=== PATIENT | female | born 1955 | race Caucasian/White ===

== ENCOUNTER 2019-01-02 08:17 | Inpatient (IN) ==
--- NOTE | 2018-11-21 08:37 | PAT Medication Instructions ---
Medication Instructions Date of Service November 21, 2018 Home Medications aspirin [Aspir-81] 81 mg PO DAILY cholecalciferol (vitamin D3) [Vitamin D3] 2,000 unit PO DAILY famotidine 10 mg PO HS raloxifene [Evista] 60 mg PO QAM ASK your prescriber and surgeon aspirin [Aspir-81] 81 mg PO DAILY DO NOT take the morning of surgery cholecalciferol (vitamin D3) [Vitamin D3] 2,000 unit PO DAILY raloxifene [Evista] 60 mg PO QAM Take morning of surgery NOTHING TO EAT OR DRINK AFTER MIDNIGHT Take evening before surgery famotidine 10 mg PO HS Other Notes If you have any questions please call us at [phone] or [phone] or [phone] or [phone]
--- NOTE | 2018-11-21 09:48 | Anesthesiology Consultation ---
Date of Service November 21, 2018 Assessment & Plan (1) Encounter for pre-operative examination: - No previous anesthesia records available Chart Review Chart Review: Acceptable Risk for Surgery and Patient seen in Pre Admission Testing Consults Requested none Teaching & Discussion Pre-Anesthesia Teaching/Discussion Notes: Instructed NPO after midnight before surgery, except medications with 15 cc of water. Medication instructions provided according to the PAT guidelines. History Surgery Operation Date: 01/02/19 07:00 Proposed Procedures p Right Total Knee Replacement - Tyron Alamo MD Height/Weight Height: 5 ft 2 in Weight: 64.9 kg Allergies Allergy/AdvReac Type Severity Reaction Status Date / Time latex Allergy Unknown ITCHY, Verified 11/17/18 09:35 REDNESS codeine AdvReac Unknown N/V Verified 11/17/18 09:35 Medications Home Medications Medication Instructions Recorded Confirmed Last Taken aspirin [Aspir-81] 81 mg PO DAILY 11/17/18 11/17/18 Unknown cholecalciferol (vitamin D3) 2,000 unit PO DAILY 11/17/18 11/17/18 Unknown [Vitamin D3] famotidine 10 mg PO HS 11/17/18 11/17/18 11/16/18 raloxifene [Evista] 60 mg PO QAM 11/17/18 11/17/18 11/17/18 Past Medical History Medical History Acid reflux High cholesterol AT MOST RECENT CHECK/RE-CHECK IN 6 MON 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 Works with regional trainer on strength training. Recumbant bike and low impact. Able to walk up stairs, but slower than normal. Not able to do her normal cardio due to knee pain. Denies CP or SOB.) Past Family History Family History Sister History of breast cancer Father History of prostate cancer Brother History of prostate cancer Past Surgical History Surgical History H/O Mohs micrographic surgery for skin cancer History of arthroscopy of right knee History of colonoscopy History of hernia surgery RIGHT INGUINAL History of lumpectomy of left breast History of tonsillectomy and adenoidectomy Past Anesthesia History No Hx of Anesthesia Complications and No Family Hx of Anesthesia Complications History of PONV No Hx of PONV and No Hx of Motion Sickness Social History Smoking Status: Never smoker Do You Dip or Chew Tobacco: No Hx Alcohol Use: Yes Alcohol type: wine alcohol intake frequency: a few times a week Hx Substance Use: No substance use type: does not use Review of Systems Patient denies chest pain, shortness of breath, dyspnea on exertion, cough, wheezing, palpitations. +Joint Pain (Knee) +Acid Reflux (Controlled with current medications) Physical Exam Vital Signs BP: 101/68 P: 75 R: 14 T: 98.7 SPO2: 96% on RA ENMT Thyromental Distance: > or= 3.5 Finger Breadths (3.5) Mallampati Class: I Neck normal visual inspection and trachea midline; neck extension not limited Respiratory normal respiratory effort Auscultation: lungs clear to auscultation bilaterally Cardiovascular Rate/Rhythm: regular rate and regular rhythm Heart Sounds: no murmur Vessels: no carotid bruit Neurologic moves all extremities Psychiatric Orientation: alert and oriented x 3 Testing Laboratory Results 11/21/18 10:19 11/21/18 10:19 11/21/18 11/21/18 10:19 10:19 PT 10.1 INR 1.0 APTT 24.5 Blood Type A Positive Antibody Screen NEGATIVE Electrocardiogram Date: 11/21/18 Findings: + NSR @ (67) Chest X-Ray Date: 11/21/18 Findings: + NAD FINDINGS: The lungs are clear. Cardiac silhouette is normal in size. No pleural effusions. No pneumothorax. Moderate to large amount of well-formed stool within the colon. IMPRESSION: No acute process.
--- NOTE | 2018-11-21 10:42 | XRay Report ---
XR chest Pre-admission PA/Lat HISTORY: Preop. COMPARISON: None. FINDINGS: The lungs are clear. Cardiac silhouette is normal in size. No pleural effusions. No pneumot horax. Moderate to large amount of well-formed stool within the colon. IMPRESSION: No acute process. Electronically signed by: Reza Mejia M.D. 11/21/2018 10:41 AM
[2018-11-21 12:12] LABS: Basophils # (auto) 0.03 K/uL (0-0.2); Eosinophils # (auto) 0.08 K/uL (0-0.5); Eosinophils % (auto) 2.6 %; Hematocrit (blood only) 37.5 % (37-47); Hemoglobin 12.2 g/dL (12.0-16.0); Lymphocytes # (auto) 1.16 K/uL (1.2-3.4); Lymphocytes % (auto) 37.2 %; Mean Corpuscular Hgb Conc 32.5 g/dL (32-36); Mean Corpuscular Volume 93.3 fL (80-100); Mean Platelet Volume 9.8 fL (7.4-10.4); Monocytes # (auto) 0.45 K/uL (0.11-0.59); Monocytes % (auto) 14.4 %; Neutrophils % (auto) 44.8 %; Platelet Count 241 K/uL (130-400); RDW Standard Deviation 44.3 fL (36.4-46.3); Red Blood Count 4.02 M/uL (4.2-5.4); White Blood Count 3.12 K/uL (4.8-10.8)
[2018-11-21 12:20] LABS: Calcium 8.9 mg/dl (8.5-10.1); Creatinine Clr Calc Pharmacy 78.5 ml/min; Est GFR (African American) 109.3; Est GFR (Non-African American) 94.3; Potassium 4.3 mmol/L (3.5-5.1)
[2018-11-21 12:28] LABS: Partial Thromboplastin Ratio 0.9; Partial Thromboplastin Time 24.5 Seconds (21.0-31.0); Prothrombin Time 10.1 Seconds (9.0-12.0)
--- NOTE | 2018-12-27 10:36 | History and Physical Report ---
DATE OF ADMISSION: 01/02/2019 CHIEF COMPLAINT: Right knee pain. HISTORY OF PRESENT ILLNESS: The patient is a 63-year-old female from the [place], [place] who presents for surgical treatment of her right knee. The patient is a sister of a total knee replacement patient of mine who she helped to recovery in the past. This patient has a several-year history of right knee pain and discomfort. It has gotten significantly worse over the past 2 years. No known injury. She has been through extensive conservative treatment and local including medicines with injections, which really have not helped much at all lately. Her pain is global. The more she walks, the more it hurts. She has a walking tolerance of a couple blocks. It does swell as the day goes on. Does have history of a knee arthroscopy back in 1990, which did help for a while. She has nighttime discomfort. She would like to have her right knee fixed. PAST MEDICAL HISTORY: Significant for: 1. Loco's palsy of unclear etiology. 2. Chronic anemia. 3. Gastroesophageal reflux disease. 4. Breast cancer in remission. 5. Skin cancer. PAST SURGICAL HISTORY: Previous surgeries include: 1. Right knee arthroscopy in 1990. 2. T and A. 3. Hernia repair. 4. Lumpectomy. 5. Mohs surgery. ALLERGIES: CODEINE WHICH CAUSES NAUSEA AND VOMITING AND LATEX WHICH CAUSES SWELLING. CURRENT MEDICINES: Include: 1. Raloxifene 60 mg once a day. 2. Famotidine 20 mg. 3. Aspirin 81 mg a day. 4. Vitamin D. SOCIAL HISTORY: A 63-year-old female. She lives in [place]. She is . She has family in this area. Four drinks per week. Does not smoke. FAMILY HISTORY: Noncontributory. REVIEW OF HISTORY: Negative for diabetes, neurologic problems, vascular problems or bleeding disorders. No chest pain or shortness of breath. No evidence of DVT or PE. PHYSICAL EXAMINATION: GENERAL: Reveals a healthy, pleasant middle-aged female. Looks to be in pretty good health. HEENT: Benign. NECK: Supple. No lymphadenopathy. LUNGS: Clear to auscultation. HEART: Has a regular rate and rhythm. ABDOMEN: Soft, nontender, nondistended. EXTREMITIES: Grossly neurovascularly intact except as follows: Examination of the right knee reveals the patient walks with a slight bit of a limp. She has fairly neutral slight varus alignment to her knee. She is tender over the medial joint line. Small knee effusion. Range of motion is 5 degrees short of full extension to 120 degrees of flexion. There is no instability. No pain with hip motion. X-RAYS: X-ray of the right knee reviewed. Shows advanced medial compartment DJD. She has osteophytes off the medial tibial plateau. A little bit of tibial femoral subluxation. ASSESSMENT: A 63-year-old female with right knee pain and degenerative joint disease with a history of knee arthroscopy many years ago. She has failed conservative treatment and would like to have her right knee replaced. PLAN: We will take her to the operating room and do a right knee replacement. The risks and benefits of this procedure were explained to the patient including but not limited to DVT, PE, , infection, neurological injury, vascular injury, bleeding problem, pain, limited range of motion, stiffness, failure to relieve her symptoms, incomplete relief of symptoms, need for further surgery in future, fracture, leg length inequality, nerve palsy, need for revision surgery, need for blood transfusion, etc. The patient understands and desires to proceed. Informed consent was obtained. The patient is planning to be discharged to her sister's home who will assist in her care. She will plan on using [facility].
[~2019-01-02 08:17] MED LIST: ACETAMINOPHEN 500 MG TAB PO SCH; BUPIVACAINE 0.5 % 5 MG/1 ML PF 10ML VIAL ONE; BUPIVACAINE LIPOSOME/PF 266 MG, BUPIVACAINE/EPINEPHRINE 50 ML, SODIUM CHLORIDE 0.9% 30 ... INFIL SCH; CEFAZOLIN 2000MG 2,000 MG/15 ML SYR IV SCH; EPINEPHrine INJ 1 MG/ML AMP ONE; FAMOTIDINE 20 MG TAB PO SCH; GABAPENTIN 600 MG DOSE PO SCH; LR 500ML BOLUS, THEN 15ML/HR IV SCH; LR 60ML/HR IV SCH; METOCLOPRAMIDE HCL 10 MG TABLET PO SCH; ROPIVACAINE 0.5% 5 MG/ML 30 ML VIAL ONE; SCOPOLAMINE 1.5 MG TDSY TD SCH; TRANEXAMIC ACID 1,000 MG **IV Intra-op IV SCH
--- NOTE | 2019-01-02 08:35 | History & Physical Bridge Note ---
Date of Service January 02, 2019 History & Physical Bridge Note I have examined the patient, reviewed the History & Physical and in the interval since the performance of the History & Physical I have noted the following changes of clinical significance: no changes noted
[2019-01-02] MEDS ORDERED: fentaNYL citrate 100 MCG/2 ML VIAL ONE (08:37)
[2019-01-02] MEDS ORDERED: MIDAZOLAM HCL 1 MG/ML 2ML VIAL ONE (08:38)
[2019-01-02] MEDS ORDERED: SODIUM CHLORIDE 0.9% PF 50 ML VIAL ONE (08:40)
[2019-01-02] MEDS ORDERED: BACITRACIN INJ 50,000 UNIT VIAL ONE (08:41)
[2019-01-02] MEDS ORDERED: BUPIVACAINE LIPOSOME 1.3% 266 MG/20 ML VIAL ONE (08:41)
[2019-01-02] MEDS ORDERED: BUPIVACAINE/EPINEPHRINE 0.25% 1:200,000 30 ML VIAL ONE ×2 (08:43→09:24)
[2019-01-02] MEDS ORDERED: PROPOFOL IV EMULSION 10 MG/ML 20 ML VIAL IV ONE (11:28)
[2019-01-02] MEDS ORDERED: LIDOCAINE HCL 2% 2 ML VIAL/AMP(20MG/ML) INFIL ONE (11:28)
--- NOTE | 2019-01-02 12:13 | Post Operative Brief Note ---
Immediate Post Op Note v1 Date of Surgery January 02, 2019 Pre & Post Diagnosis Operation Date: 01/02/19 10:40 Pre-Op Diagnosis: Right knee degenerative joint disease with knee pain Post-Op Diagnosis: Right knee degenerative joint disease with knee pain Procedure Operation Date: 01/02/19 10:40 Actual Procedures p Right Total Knee Replacement(Right) - Tyron Alamo MD Surgeon Tyron Alamo MD Resource Management Specialist Analia, PAC Estimated Blood Loss 50 Findings Consistent with Post-Op Diagnosis Fluids 1500 cc Specimens Right Knee Drains Glez Catheter Anesthesia Type Spinal MAC Complications none Disposition Accompanied Patient To Recovery: No Disposition: Recovery Room
--- NOTE | 2019-01-02 12:30 | XRay Report ---
TWO VIEWS RIGHT KNEE CLINICAL HISTORY: Postoperative examination. FINDINGS: AP and crosstable lateral portable views of the right knee are obtained. A right knee arthr oplasty is in near anatomic alignment. There has been undersurface remodeling of the patella. No acut e fracture is seen. There are expected postoperative changes around the knee including skin clips, so ft tissue edema, and subcutaneous gas. IMPRESSION: Expected postoperative changes status post right knee arthroplasty. No acute fracture is seen. Electronically signed by: Terry Adler M.D. 01/02/2019 12:28 PM
[2019-01-02] MEDS ORDERED: ePHEDrine sulfate 50 MG/ML AMP IV PRN (12:41)
[2019-01-02] MEDS ORDERED: ATROPINE SULFATE 0.1 MG/ML 10ML SYR IV PRN (12:41)
--- NOTE | 2019-01-02 12:43 | Anesthesiology Progress Note ---
Date of Service January 02, 2019 Anesthesia Post Procedure Vital Signs Vital Signs: Temp Pulse Pulse Resp BP Pulse Ox 01/02/19 12:40 87 16 106/69 98 01/02/19 12:30 89 15 118/65 100 01/02/19 12:19 36.4 C L 89 16 96/81 L 98 01/02/19 08:45 36.8 C 72 18 117/59 L 98 Pain Intensity Right Knee: Pain Intensity: 0 Transfer of Care Handoff Completed per policy Notes Mental Status: alert / awake / arousable Patient Amnestic to Procedure: Yes Nausea / Vomiting: adequately controlled Pain: adequately controlled Airway Patency, RR, SpO2: stable & adequate BP & HR: stable & adequate Hydration State: stable & adequate Neuraxial Anesthesia: was administered and sensory block is resolving Anesthetic Complications: no major complications apparent
[2019-01-02] MEDS ORDERED: HYDROmorphone INJ 0.5 MG/0.5 ML SYR IV PRN (13:10)
[2019-01-02] MEDS ORDERED: BISACODYL 10 MG SUPP PR PRN (13:10)
[2019-01-02] MEDS ORDERED: MAGNESIUM HYDROXIDE SUSP 30 ML UDC PO PRN (13:10)
[2019-01-02] MEDS ORDERED: ALUMINUM/MAGNESIUM SUSP 30 ML UDC PO PRN (13:10)
[2019-01-02] MEDS ORDERED: NALOXONE HCL 0.4 MG/1 ML VIAL/CARP IV PRN (13:10)
[2019-01-02] MEDS ORDERED: METOCLOPRAMIDE HCL INJ 5 MG/ML 2 ML VIAL IV PRN (13:10)
[2019-01-02] MEDS: SODIUM CHLORIDE 0.9% 1000ML 1,000 ML IV SCH (14:38)
[2019-01-02] MEDS: KETOROLAC 30 MG/ML VIAL IV SCH ×2 (15:28→21:50)
[2019-01-02] MEDS: CHECK SCOPOLAMINE PATCH PLACEMENT SCH ×2 (15:29→23:55)
[2019-01-02] MEDS: ACETAMINOPHEN 500 MG TAB PO SCH ×2 (16:22→22:27)
[2019-01-02] MEDS: TRAMADOL HCL 50 MG TABLET PO PRN ×2 (16:22→23:58)
[2019-01-02] MEDS: FERROUS GLUCONATE 324 MG TAB PO SCH (17:39)
[2019-01-02] MEDS: ASCORBIC ACID 500 MG TAB PO SCH (17:40)
[2019-01-02] MEDS ORDERED: TRANEXAMIC ACID 1,000 MG in 0.9 % SODIUM CHLORIDE 100 ML IV SCH (18:15)
[2019-01-02] MEDS: CEFAZOLIN 1000MG 1,000 MG/7.5 ML SYR IV SCH (18:29)
--- NOTE | 2019-01-02 18:56 | Progress Note ---
DATE: 01/02/2019 SUBJECTIVE: This patient is a 63-year-old female who is postoperative from a right knee replacement. The patient is doing well. Pain is controlled. No chest pain or shortness of breath. Not feeling dizzy or lightheaded. OBJECTIVE: VITAL SIGNS: Temperature is 36.4. Vital signs stable. PHYSICAL EXAMINATION: GENERAL: Pleasant, middle-aged female. She is sitting up in her bedside chair eating her dinner. She looks comfortable. LUNGS: Clear to auscultation. HEART: Has regular rate and rhythm. ABDOMEN: Soft, nontender and nondistended. EXTREMITIES: Grossly neurovascularly intact except as follows. Examination of the right lower extremity reveals the dressing to be clean, dry and intact. Leg is well aligned. She can dorsiflex and plantarflex her foot appropriately. She is neurologically intact. X-RAYS: X-rays of the right knee from recovery room reviewed. It shows cemented posterior stabilized total knee arthroplasty. Components looked to be in good position. No signs of problems. ASSESSMENT: This patient is a 63-year-old female postoperative from a right knee replacement, doing well. Pain is controlled. She is neurologically intact. PLAN: 1. Deep venous thrombosis prophylaxis including thigh-high thromboembolic deterrent stockings, sequential compression devices and aspirin twice a day. 2. Physical therapy/occupational therapy. Weight bear as tolerated. Right total knee protocol. 3. Pain control, doing well with current pain regimen. 4. I.V. antibiotics x24 hours. 5. Disposition: She is planning to be discharged home with some home health once adequately recovered.
[2019-01-02] MEDS: ONDANSETRON INJ 2 MG/ML 2 ML VIAL IV PRN (18:58)
--- NOTE | 2019-01-02 20:07 | Operative Report ---
DATE OF OPERATION: 01/02/2019 SURGEON: Tyron Alamo MD SYSTEM SUPPORT ANALYST: CARLI Han PREOPERATIVE DIAGNOSIS: Right knee degenerative joint disease. POSTOPERATIVE DIAGNOSIS: Right knee degenerative joint disease. PROCEDURE PERFORMED: Right cemented posterior stabilized total knee arthroplasty. COMPLICATIONS: None. ESTIMATED BLOOD LOSS: 50 mL. FLUID REPLACEMENT: 1500 mL crystalloid fluid replacement. TOURNIQUET TIME: 50 minutes at 300 mmHg. ANESTHESIA: Spinal with adductor canal block. DRAINS: None. SPECIMENS: Right knee sent for pathology. OPERATIVE INDICATIONS: The patient is a 63-year-old female from [place] who has had a long history of right knee pain and discomfort that has gradually gotten worse over time. She does have a history of a knee arthroscopy back in 1990. She has been through extensive conservative treatment over the years, which become less successful. X-rays showed advanced medial compartment arthritis. The patient elected to proceed with operative treatment. OPERATIVE FINDINGS: Operative findings revealed advanced right knee DJD with grade 4 bone on bone disease in the medial compartment with pretty extensive eburnation. She has some spotty grade 4 changes laterally as well as in the patellofemoral joint. Moderate size joint effusion. OPERATIVE IMPLANTS: Operative implants consisted of: 1. Biomet Vanguard size 60 right posterior stabilized femoral component. 2. Biomet size 63 tibial tray. 3. A 10 mm posterior stabilized polyethylene insert. 4. A 28 x 8 all poly patella. OPERATIVE PROCEDURE: The patient was taken to the operating room, identified and placed on the operating room table in supine position. All contact areas were appropriately padded. I.V. antibiotics provided by anesthesia team. A spinal anesthetic and adductor canal block had been provided in the holding area. Glez catheter was placed in sterile fashion. Right thigh tourniquet was then placed and the right lower extremity was then prepped and draped in usual sterile fashion. The right leg was elevated and exsanguinated using Esmarch and tourniquet was placed at 300 mmHg. An anterior approach of the right knee was then performed through a longitudinal incision centered over the patella. Sharp dissection was carried through subcutaneous tissues down to the level of the extensor mechanism. A medial parapatellar arthrotomy incision was made. Some subperiosteal dissection was carried out medially. The fat pad resected from beneath the patellar tendon. The lateral patellofemoral ligament was released. The patella was everted and knee was flexed. The osteophytes were taken off the distal femur. The ACL and PCL were then released from the distal femur. The tibia subluxated anteriorly. External tibial alignment jig was then placed in the anterior face of the tibia and adjusted 14 mm medially. Proximal tibial cut was made to remove about 2 mm of bone from most deficient aspect of the medial tibial plateau. Some osteophytes were taken off medially and posteromedially. Tibia sized to a size 63. Attention was then drawn to the femur. The distal femur was entered with a sharp drill bit. Intramedullary canal was suctioned. A right 5-degree valgus cutting guide was placed. Distal femoral cutting block was pinned in place. Distal femoral cut was made to take an additional 3 mm of bone off the distal femur. Femur was then sized to a size 60. We did downsize this slightly. The AP cutting block was pinned parallel to the epicondylar axis, which was 3 degrees of external rotation. The anterior cut, anterior chamfer cut, posterior cut, posterior chamfer cuts were made. Box cut guide was placed and adjusted slightly lateral and the box cut was made. The knee was flexed. The remnants of the medial and lateral menisci were excised. The osteophytes were taken off the posterior aspect of the femur. Trial femoral component was placed. Tibial tray was pinned in maximum external rotation and drill and stem punch were used to create defect in proximal tibia for the tibial tray. The knee was then trialed and 10 mm insert fit most appropriately. Attention was then drawn to the patella. The patella was cleaned of all soft tissues. Patella thickness measured 20 mm in thickness and was cut down to 12. It was sized to a size 28 patella. Lug holes were drilled for 28 patella. Lateral osteophyte was removed. Patella button was placed. Knee was taken through range of motion. Patella tracked nicely with no thumbs test. Attention was then drawn toward placing the permanent components. All trial components were removed. Bone plug was placed in the distal femur to limit blood loss. A double batch of Palacos G cement was mixed. A Biomet Vanguard size 60 right posterior stabilized femoral component, size 63 tibial tray, a 10 mm posterior stabilized polyethylene insert, 28 x 8 all poly patella then cemented in place. Knee was brought out into full extension until cement hardened. A final cement check was then performed. Pericapsular tissues were injected with a total of 100 mL of combination of 20 mL of Exparel, 30 mL of normal saline, 50 mL of 0.25% Marcaine with epinephrine. The patient did receive 1 g of tranexamic acid. The tourniquet was then let down for final tourniquet time of 50 minutes. Hemostasis was assured with use of electrocautery. The extensor mechanism was then closed with combination of #1 PDS suture and #1 Vicryl suture in [id number] fashion. Extensor mechanism is intact. It was checked and intact. Subcutaneous tissue was then closed with #2 Dexon suture in a buried interrupted fashion. Skin was closed with skin rigo. Leg was then cleaned, dried and a sterile dressing of Xeroform, 4 x 4, sterile cast padding and Narendra bandage were applied. The patient was transferred to the recovery room in a stable condition. The patient tolerated the procedure well with no complication. All needle and sponge counts were correct at the end of the operation. I attest to the content of the Intraoperative Record and any orders documented therein. Any exception s are noted below.
[2019-01-02] MEDS: DOCUSATE SODIUM 100 MG CAP PO SCH (21:51)
[2019-01-02] MEDS: SENNA 8.6 MG TAB PO SCH (21:51)
[2019-01-02] MEDS: ASPIRIN 81 MG ECTAB PO SCH (21:51)
[2019-01-02] MEDS: FAMOTIDINE 20 MG TAB PO SCH (21:52)
[2019-01-03] MEDS: SODIUM CHLORIDE 0.9% 1000ML 1,000 ML IV SCH
[2019-01-03] MEDS: CEFAZOLIN 1000MG 1,000 MG/7.5 ML SYR IV SCH (02:25)
[2019-01-03] MEDS: KETOROLAC 30 MG/ML VIAL IV SCH ×4 (02:25→19:20)
[2019-01-03] MEDS: ACETAMINOPHEN 500 MG TAB PO SCH ×3 (05:41→22:00)
[2019-01-03 06:26] LABS: Hematocrit (blood only) 32.2 % (37-47); Hemoglobin 10.7 g/dL (12.0-16.0); Mean Corpuscular Hgb Conc 33.2 g/dL (32-36); Mean Corpuscular Volume 92.8 fL (80-100); Mean Platelet Volume 9.7 fL (7.4-10.4); Platelet Count 199 K/uL (130-400); RDW Coefficient of Variation 13.1 % (11.5-14.5); RDW Standard Deviation 44.3 fL (36.4-46.3); Red Blood Count 3.47 M/uL (4.2-5.4); White Blood Count 6.35 K/uL (4.8-10.8)
[2019-01-03 07:00] LABS: BUN Creatinine Ratio 18.8 (10-20); Calcium 7.7 mg/dl (8.5-10.1); Creatinine Clr Calc Pharmacy 75.5 ml/min; Est GFR (African American) 107.7; Est GFR (Non-African American) 92.9; Potassium 3.7 mmol/L (3.5-5.1)
[2019-01-03] MEDS: TRAMADOL HCL 50 MG TABLET PO PRN ×3 (07:25→19:52)
--- NOTE | 2019-01-03 08:11 | Progress Note ---
DATE: 01/03/2019 SUBJECTIVE: A 63-year-old female postop day 1 from right knee replacement. She is doing well. A little bit more pain overnight but still very manageable. No chest pain or shortness of breath. Not feeling dizzy or lightheaded. OBJECTIVE: VITAL SIGNS: Temperature 36.5. Vital signs stable. PHYSICAL EXAMINATION: GENERAL: Shows a pleasant, middle-aged female. She is sitting up in bed and reading a book this morning. EXTREMITIES: Examination of the right leg reveals the dressing to be clean, dry and intact. Leg is well aligned. She can dorsiflex and plantarflex her foot appropriately. She is neurologically intact. LABORATORY DATA: Hemoglobin 10.7. Hematocrit 32.2. Electrolytes are stable. ASSESSMENT: A 63-year-old female postop day 1 from right knee replacement, doing pretty well. Pain is controlled. She is neurologically intact. PLAN: 1. DVT prophylaxis including thigh-high TEDs, SCDs, and aspirin twice a day. 2. PT/OT. Weight bear as tolerated. Right total knee protocol. 3. Pain control, doing well with current pain regimen. 4. Disposition: She is planning to be discharged home with some home health and family.
[2019-01-03] MEDS ORDERED: CHOLECALCIFEROL 1,000 UNITS TAB PO SCH (09:00)
[2019-01-03] MEDS ORDERED: MULTIVITAMIN TAB PO SCH (09:00)
[2019-01-03] MEDS ORDERED: RALOXIFENE HCL 60 MG TAB PO SCH (09:00)
[2019-01-03] MEDS: ONDANSETRON INJ 2 MG/ML 2 ML VIAL IV PRN (09:11)
--- NOTE | 2019-01-03 10:34 | Anesthesiology Progress Note ---
Date of Service January 03, 2019 Anesthesia Post Procedure Vital Signs Vital Signs: Temp Pulse Pulse Pulse Resp BP BP 01/03/19 07:16 36.5 C 72 17 119/73 01/03/19 04:11 36.6 C 75 14 110/65 01/02/19 23:03 36.5 C 70 14 133/79 01/02/19 19:55 36.6 C 63 16 110/64 01/02/19 19:02 68 116/73 01/02/19 16:06 36.4 C L 64 16 126/77 01/02/19 15:05 36.5 C 69 16 138/75 01/02/19 14:04 36.5 C 69 18 122/74 01/02/19 13:34 36.4 C L 71 20 118/73 01/02/19 13:05 36.4 C L 79 16 118/75 01/02/19 12:50 37 C 89 17 104/84 01/02/19 12:40 87 16 106/69 01/02/19 12:30 89 15 118/65 01/02/19 12:19 36.4 C L 89 16 96/81 L Pulse Ox 01/03/19 07:16 93 01/03/19 04:11 92 01/02/19 23:03 95 01/02/19 19:55 97 01/02/19 19:02 92 01/02/19 16:06 99 01/02/19 15:05 100 01/02/19 14:04 98 01/02/19 13:34 97 01/02/19 13:05 95 01/02/19 12:50 95 01/02/19 12:40 98 01/02/19 12:30 100 01/02/19 12:19 98 Pain Intensity Right Knee: Pain Intensity: 6 Transfer of Care Handoff Completed per policy Notes Mental Status: alert / awake / arousable and participated in evaluation Patient Amnestic to Procedure: Yes Nausea / Vomiting: adequately controlled Pain: adequately controlled BP & HR: see Notes below (pt had SBP this morning 90 mmHg upon standing with light-headedness. RN returned pt to bed and increased IVF.) Hydration State: stable & adequate Anesthetic Complications: no major complications apparent
[2019-01-03] MEDS: FERROUS GLUCONATE 324 MG TAB PO SCH ×2 (11:39→17:21)
[2019-01-03] MEDS: ASCORBIC ACID 500 MG TAB PO SCH ×2 (11:40→17:21)
[2019-01-03] MEDS: DOCUSATE SODIUM 100 MG CAP PO SCH ×2 (11:41→20:27)
[2019-01-03] MEDS: ASPIRIN 81 MG ECTAB PO SCH ×2 (11:41→20:27)
[2019-01-03] MEDS: FAMOTIDINE 20 MG TAB PO SCH (20:27)
[2019-01-03] MEDS: SENNA 8.6 MG TAB PO SCH (20:27)
[2019-01-04] MEDS: TRAMADOL HCL 50 MG TABLET PO PRN (00:45)
[2019-01-04] MEDS: KETOROLAC 30 MG/ML VIAL IV SCH ×2 (00:45→07:33)
[2019-01-04] MEDS: ACETAMINOPHEN 500 MG TAB PO SCH (05:32)
[2019-01-04] MEDS: ONDANSETRON INJ 2 MG/ML 2 ML VIAL IV PRN (07:33)
--- NOTE | 2019-01-04 09:30 | Progress Note ---
DATE: 01/04/2019 SUBJECTIVE: A 63-year-old female postop day #2 from a right knee replacement. She is doing okay. Little bit nauseated this morning. Does not do real well with pain medicine. No chest pain or shortness of breath. Not feeling dizzy or lightheaded. OBJECTIVE: VITAL SIGNS: Temperature 36.8. Vital signs stable. GENERAL: Physical examination shows a pleasant, middle-aged female. She is sitting up in bed, looks reasonably comfortable. EXTREMITIES: Examination of the right leg reveals the dressing to be intact. Just a trace bit of bloody drainage. Leg is well aligned. Fairly mild swelling. She is neurologically intact. Calf is soft and supple. ASSESSMENT: A 63-year-old female postoperative day #2 from a right knee replacement, doing pretty well. Pain is controlled. Little bit of nausea and she has had problems with pain medicine in the past. PLAN: 1. DVT prophylaxis including thigh-high TEDs, SCDs and aspirin twice a day. 2. PT/OT. Weight bear as tolerated. Right total knee protocol. 3. Pain control, doing okay with current pain regimen. Having a little bit of nausea and we will write for some Zofran. 4. Disposition: Plan to discharge her home with some home health later today.
--- NOTE | 2019-01-07 14:55 | Discharge Summary ---
ADMITTING PHYSICIAN AND SURGEON: Tyron Alamo MD ADMITTING DIAGNOSIS: Right knee degenerative joint disease. SURGERY PERFORMED: Right total knee arthroplasty. SECONDARY DIAGNOSES: Loco's palsy, chronic anemia, gastroesophageal reflux disease, breast cancer, skin cancer. CONSULTS: None obtained. HISTORY AND PHYSICAL EXAMINATION: Well documented in the patient's chart. HOSPITAL COURSE: The patient was admitted on 01/02/2019, underwent total knee arthroplasty, tolerated the procedure well. There were no complications. She was transferred to the PACU postoperatively and later to the orthopedic floor for further care. She was given Ancef for antibiotic prophylaxis, ROSANNA stockings, SCDs and aspirin for DVT prophylaxis. Hemoglobin, hematocrit and vital signs were monitored during her hospital stay and remained stable. She did not require any blood transfusions. There were no complications. By postoperative day 2, she was tolerating a regular diet, pain was controlled with oral pain medicine. She was participating in physical therapy. On postop day 2, she was discharged home, set up with home health services. She was given printed discharge instructions as well as new prescriptions for extra-strength Tylenol, aspirin, iron supplement, Zofran for nausea and tramadol. Continue her home medications. Continue physical therapy, weightbearing as tolerated, ROSANNA stockings. Follow up approximately 2 weeks postop or sooner if there are any problems or concerns.
== END 2019-01-04 11:14 | disposition home health service (06) | DRG 470 ==
LOC: PAT 08:17 → 3E 12:16

== ENCOUNTER 2022-11-20 06:33 | Inpatient (IN) ==
--- NOTE | 2022-10-25 14:55 | PAT Medication Instructions ---
Medication Instructions Date of Service October 25, 2022 Home Medications Medication Instructions Recorded amoxicillin 500 mg tablet 2,000 mg PO ONCE #4 tabs 01/25/20 cholecalciferol (vitamin D3) 50 mcg (2,000 unit) capsule (Vitamin D3) 2,000 unit PO QAM famotidine 10 mg tablet 10 mg PO BID amoxicillin 500 mg tablet 2,000 mg PO ONCE multivitamin 1 tab PO QAM rosuvastatin 5 mg tablet 5 mg PO HS Continue as directed amoxicillin 500 mg tablet 2,000 mg PO ONCE (prior to dental procedure) DO NOT take the morning of surgery cholecalciferol (vitamin D3) 50 mcg (2,000 unit) capsule (Vitamin D3) 2,000 unit PO QAM multivitamin 1 tab PO QAM Take morning of surgery With a small sip of water, OTHERWISE NOTHING TO EAT OR DRINK AFTER MIDNIGHT: famotidine 10 mg tablet 10 mg PO BID Take evening before surgery famotidine 10 mg tablet 10 mg PO BID rosuvastatin 5 mg tablet 5 mg PO HS Other Notes If you have any questions please call us at [phone] or [phone] or [phone] or [phone]
--- NOTE | 2022-11-02 13:04 | Anesthesiology Consultation ---
Date of Service November 02, 2022 Assessment & Plan (1) Encounter for pre-operative examination: - COVID screening: Per assessment on 11/02: No known COVID-19 positive contacts or current COVID-19 related symptoms. Travel screen negative. Patient vaccinated. At surgeon discretion if preop Covid testing being done. - S/P Right TKA (01/02/19): SAB at L4-5 (x1 attempt) + PNB at [facility]. No issues per 01/02/19 post-op anesthesia progress note. per 01/03/19 anesthesia progress note "pt had SBP this morning 90 mmHg upon standing with light-headedness. RN returned pt to bed and increased IVF" - Outpatient joint assessment: Pt currently scheduled for inpatient pathway. If surgeon requests review for outpatient joint pathway, patient is acceptable candidate for outpatient joint program from anesthesia standpoint pending surgeon's office assessment that patient is motivated, has good support and completes [facility] Program preop requirements. Chart Review Chart Review: Acceptable Risk for Surgery and Patient seen in Pre Admission Testing Teaching & Discussion Pre-Anesthesia Teaching/Discussion Notes: Instructed NPO after midnight before surgery,except medications with 15 cc of water. Medication instructions provided according to the PAT guidelines. History Surgery Operation Date: 11/20/22 09:10 Proposed Procedures p Left Total Knee Arthroplasty - Tyron Alamo MD Height/Weight Height: 5 ft 2 in Weight: 62 kg Allergies Allergy/AdvReac Type Severity Reaction Status Date / Time latex Allergy Unknown ITCHY, Verified 10/25/22 14:03 REDNESS codeine AdvReac Unknown N/V Verified 10/25/22 14:03 Medications Home Medications Medication Instructions Recorded Confirmed Last Taken cholecalciferol (vitamin D3) 50 2,000 unit PO QAM 11/17/18 10/25/22 12/31/18 20:00 mcg (2,000 unit) capsule (Vitamin D3) famotidine 10 mg tablet 10 mg PO BID 11/17/18 10/25/22 12/31/18 20:00 amoxicillin 500 mg tablet 2,000 mg PO ONCE #4 tabs 01/25/20 10/25/22 Unknown multivitamin 1 tab PO QAM 10/25/22 10/25/22 Unknown rosuvastatin 5 mg tablet 5 mg PO HS 10/25/22 10/25/22 Unknown Past Medical History Medical History Acid reflux High cholesterol History of Loco's palsy Left side of face (1984), residual issues History of cancer of left breast History of skin cancer BCC, SCC Left knee DJD Exercise / Class Metabolic Activity II 4-5 Yardwork/Stairs/Walk up hill Past Family History Family History Sister History of breast cancer Father History of prostate cancer Brother History of prostate cancer Past Surgical History Surgical History H/O Mohs micrographic surgery for skin cancer History of arthroscopy of right knee Right TKA (01/02/19): SAB at L4-5 (x1 attempt) + PNB at [facility]. No issues per 01/02/19 post-op anesthesia progress note. per 01/03/19 anesthesia progress note "pt had SBP this morning 90 mmHg upon standing with light-headedness. RN returned pt to bed and increased IVF" History of colonoscopy History of esophagogastroduodenoscopy (EGD) History of hernia surgery RIGHT INGUINAL History of lumpectomy of left breast History of tonsillectomy and adenoidectomy Status post right knee replacement Past Anesthesia History No Hx of Anesthesia Complications and No Family Hx of Anesthesia Complications History of PONV No Hx of Motion Sickness and History of PONV (+ nausea) Social History Smoking Status: Never smoker Do You Dip or Chew Tobacco: No Hx Alcohol Use: Yes (QUIT OF 06/2022) Alcohol type: wine alcohol intake frequency: holidays/special occasions only Hx Substance Use: No substance use type: does not use Review of Systems Patient denies chest pain, shortness of breath, dyspnea on exertion, fever, chills, cough, wheezing, palpitations. Physical Exam Vital Signs VITALS BP 114/68 P 70 TEMP 98.2 SP02 96%RA RESP 16 PHYSICAL Full cervical extension range of motion. Full TMJ range of motion. TMD 3 finger breaths Mallampati Score 1 Dentition: missing molar, + several caps Lungs: clear throughout to auscultation Cardiac: regular rate and rhythm, no murmurs noted Spine: normal Carotid arteries: negative bruit Extremities: no LE edema Lab Results Anesthesia Preop Results Results Anesthesia Widget: WBC 4.97 K/ul (4.8-10.8) 11/02/22 Hgb 12.3 g/dl (12.0-16.0) 11/02/22 Hct 36.2 % (37.0-47.0) L 11/02/22 Plt 212 K/uL (130-400) 11/02/22 Na 139 mmol/L (136-145) 11/02/22 K 3.7 mmol/L (3.5-5.1) 11/02/22 Cl 108 mmol/L (98-107) H 11/02/22 CO2 25 mmol/L (21-32) 11/02/22 BUN 26 mg/dl (6-23) H 11/02/22 Creat 0.64 mg/dl (0.6-1.2) 11/02/22 Glucose Level 95 mg/dl (70-99(Fasting)) 11/02/22 PT 10.8 Seconds (9.0-12.0) 11/02/22 PTT 25.7 Seconds (21.0-31.0) 11/02/22 INR 1.0 (0.9-1.1) 11/02/22 Blood Type A Positive 11/02/22 Antibody Screen NEGATIVE 11/02/22 Testing Electrocardiogram Date: 11/02/22 NSR at 64bpm. Chest X-Ray Date: 11/02/22 FINDINGS: No pneumothorax. No pleural effusions. The cardiac silhouette is top normal in size. No evidence for pulmonary edema. A few small left basilar linear densities persist and favor subsegmental atelectasis are scarring. Otherwise, the lungs are clear. IMPRESSION: No significant change compared to the prior study. No acute process. COVID-19 Risk Screen Screening Information COVID-19 Screen Date: 11/02/22 Exposure 21 Days Family/Household +COVID Last 21 Days: No Exposure 10 Days Any COVID Exposure Last 10 Days: No Symptoms Last 10 Days Experienced COVID Sx Last 10 Days: No + COVID 0-90 Days COVID + in Last 0-90 Days: No
--- NOTE | 2022-11-15 08:21 | History and Physical Report ---
CHIEF COMPLAINT: Persistent left knee pain and discomfort. HISTORY OF PRESENT ILLNESS: The patient is a 67-year-old female, who presents for surgical treatment of her left knee. She has got a long history of knee problems and had her right knee replaced about 4 years ago. She has done well from this. She continues to be disabled by left knee pain, discomfo rt, and stiffness. She has been through extensive conservative treatment, which has become less succ essful overtime. She describes global pain. The more she is up and on it, the more it hurts. Limps more as the day goes on. She would like to have her left knee replaced. PAST MEDICAL HISTORY: 1. History Loco's palsy. 2. Breast cancer. PAST SURGICAL HISTORY: Includes: 1. Right knee replacement done on 01/02/2019. 2. Lumpectomy. 3. Tonsillectomy. ALLERGIES: CODEINE. CURRENT MEDICATIONS: Include: 1. Vitamin D3. 2. Famotidine. 3. Statin. 4. Evista. SOCIAL HISTORY: A 67-year-old female. She is retired and . One to two drinks per week. Do es not smoke. FAMILY HISTORY: Noncontributory. REVIEW OF SYSTEMS: Negative for diabetes. No significant chest pain or shortness of breath. No his tory of DVT or PE. PHYSICAL EXAMINATION: GENERAL: Physical exam shows a pleasant middle-aged female, who looks to be in pretty good health. HEENT: Benign. NECK: Supple. No lymphadenopathy. LUNGS: Clear to auscultation. HEART: Has a regular rate and rhythm. ABDOMEN: Soft, nontender, and nondistended. EXTREMITIES: Grossly neurovascularly intact except as follows. Examination of the left knee reveals a fairly well-aligned knee. She maybe just in a slight bit of v arus. She is tender over the medial joint line. Small knee effusion. Range of motion is 0 to 120. No instability. No pain with hip motion. Examination of the right knee reveals a well-healed incis ion. She has got anatomic alignment to the knee. Range of motion is 0 to 125. X-RAYS: X-rays of the left knee are reviewed. It shows [id number] medial compartment arth ritis. She has got over 50% of her medial joint space loss. She has got osteophytes, primarily medi ally. A little bit of tibial femoral subluxation. ASSESSMENT: A 67-year-old white female 4 years out from right knee replacement with left knee degene rative joint disease. She has failed conservative treatment. She would like to have her left knee f ixed. Very happy with the right knee. PLAN: We will proceed with left knee replacement. The risks and benefits of this procedure were exp lained to the patient and include, but not limited to DVT, PE, , infection, neurological injury, vascular injury, bleeding problem, pain, limited range of motion, stiffness, failure to relieve her symptoms, incomplete relief of symptoms, need for further surgery in the future, etc. The patient un derstands and desires to proceed. Informed consent was obtained. As far as discharge plans, she is planning to be discharged to home using [facility]. Will use DVT prophylaxis to include TEDs, SCDs, and aspirin twice a day. Job ID: [id number]
[~2022-11-20 06:33] MED LIST changes: -BUPIVACAINE LIPOSOME/PF 266 MG, BUPIVACAINE/EPINEPHRINE 50 ML, SODIUM CHLORIDE 0.9% 30 ... INFIL SCH; +BUPIVACAINE LIPOSOME/PF 266 MG, BUPIVACAINE/EPINEPHRINE 50 ML, SODIUM CHLORIDE 0.9% PF ... INFIL SCH; -CEFAZOLIN 2000MG 2,000 MG/15 ML SYR IV SCH; +CeleBREX 200 MG CAP PO SCH; -EPINEPHrine INJ 1 MG/ML AMP ONE; -GABAPENTIN 600 MG DOSE PO SCH; -SCOPOLAMINE 1.5 MG TDSY TD SCH; +ceFAZolin 2000MG 2,000 MG/15 ML SYR IV SCH; +dexAMETHasone**PF** 10 MG/ML VIAL IV SCH
--- NOTE | 2022-11-20 06:56 | History & Physical Bridge Note ---
Date of Service November 20, 2022 History & Physical Bridge Note I have examined the patient, reviewed the History & Physical and in the interval since the performance of the History & Physical I have noted the following changes of clinical significance: no changes noted
[2022-11-20] MEDS ORDERED: MIDAZOLAM HCL 1 MG/ML 2ML VIAL ONE (07:34)
[2022-11-20] MEDS ORDERED: fentaNYL citrate PF 100 MCG/2 ML VIAL ONE ×3 (07:35→13:07)
[2022-11-20] MEDS ORDERED: LIDOCAINE 2% 2 ML VIAL/AMP(20MG/ML) INFIL ONE (07:37)
[2022-11-20] MEDS ORDERED: PROPOFOL IV EMULSION 10 MG/ML 20 ML VIAL IV ONE (07:38)
[2022-11-20] MEDS ORDERED: ONDANSETRON INJ 2 MG/ML 2 ML VIAL ONE (07:38)
[2022-11-20] MEDS ORDERED: ATROPINE SULFATE 0.1 MG/ML 10ML SYR IV PRN (08:03)
[2022-11-20] MEDS ORDERED: ePHEDrine sulfate 50 MG/ML AMP IV PRN (08:03)
[2022-11-20] MEDS ORDERED: ONDANSETRON INJ 2 MG/ML 2 ML VIAL IV PRN ×2 (08:03→11:42)
[2022-11-20] MEDS ORDERED: fentaNYL citrate PF 100 MCG/2 ML VIAL IV PRN (08:03)
[2022-11-20] MEDS ORDERED: LR 500ML BOLUS, THEN 15ML/HR IV SCH (08:45)
[2022-11-20] MEDS ORDERED: BUPIVACAINE/EPINEPHRINE 0.25% 1:200,000 30 ML VIAL ONE (08:53)
[2022-11-20] MEDS ORDERED: SODIUM CHLORIDE 0.9% PF 50 ML VIAL ONE (08:53)
[2022-11-20] MEDS ORDERED: BUPIVACAINE LIPOSOME 1.3% 266 MG/20 ML VIAL ONE (08:54)
[2022-11-20] MEDS ORDERED: PHENYLEPHRINE HCL 10 MG/ML VIAL ONE (09:48)
--- NOTE | 2022-11-20 10:44 | Operative Report ---
PG Post Operative Report Pre & Post Diagnosis Operation Date: 11/20/22 08:40 Pre-Op Diagnosis: Left Knee Degenerative Joint Disease Post-Op Diagnosis: Left Knee Degenerative Joint Disease I identified the patient and participated in the time-out.: Yes Procedure Operation Date: 11/20/22 08:40 Actual Procedures p Left Total Knee Arthroplasty(Left) - Tyron Alamo MD Surgeon Tyron Alamo MD Paper Machine Back Tender Rk Helms PA-C Estimated Blood Loss 50 Findings Consistent with Post-Op Diagnosis Operative findings reveal a pretty extensive grade 4 [id number] disease in all 3 compartments. She did not have much in way eburnation but did have full- thickness cartilage loss in all 3 compartments. Moderate-sized joint effusion. Fairly neutral alignment to her knee. Specimens Left knee sent for pathology. Anesthesia Type Spinal MAC Complications none Disposition Accompanied Patient To Recovery: No Indications Patient is a 67-year-old female whose had a long history of knee problems. She underwent a right knee replaced about 4 years ago. She developed increased pain discomfort in her left knee. She been through extensive conservative treatment which became less successful over time. She like proceed with total knee arthroplasty. Description of Procedure Operative implants consist of: 1. Biomet Vanguard size 62.5 left posterior stabilized femoral component. 2. Biomet size 63 tibial tray. 3. 12 mm posterior stabilized polyethylene insert. 4. 28 x 8 all poly patella. The patient was taken to the operating, identified, placed on the operating table supine position protectors were properly padded. IV antibiotics tried by anesthesia team. A spinal anesthetic and abductor canal block had been provided in the holding area. Glez catheter was placed in sterile fashion. Left factor was then placed in the left lower extremity then prepped and draped in usual sterile fashion. The left leg was elevated exsanguinated with use of an Esmarch and the tourniquet was set at 300 mmHg. An anterior approach to the left knee was then performed to longitudinal incision centered over the patella. Sharp dissection was carried through subcutaneous tissue down the extensor mechanism. Medial parapatellar arthrotomy incision was made. Some subperiosteal dissection was carried out medially. The fat pad was dissected from Neath patella tendon. Lateral patellofemoral ligament was released. The patella was subluxated laterally knee was flexed. The osteophytes taken on distal femur. The ACL and PCL were then released from the distal femur the tibia subluxated anteriorly. The external tibial alignment jig was then placed in the interface the tibia and adjusted 14 mm medially. Proximal tibial cut was made to move about 2 to 3 mm of bone from the medial side. The tibia was then sized to a size 63. Attention drawn the femur. The distal femur was entered with a sharp drop with intramedullary canal was suction. A left 5 degree valgus cutting guide was placed. Distal femoral cutting block was pinned in place. Distal femoral cut was made to take an additional 3 mm of bone off distal femur. The femur was then sized to a size 6 2.5. The AP cutting block was pinned parallel to the epicondylar axis which was 4 degrees of external rotation. The anterior cut, anterior chamfer, posterior cut, posterior chamfer cuts were made. The box cutting guide was placed in a just slight lateral box cut was made. The knee was flexed. The remnants of the medial lateral menisci were excised. The osteophytes taken off the posterior aspect the femur. A trial femoral component was placed. Tibial tray was pinned in maximum external rotation and the drill and stem punch were used to create defect in proximal tibia for the tibial tray. The knee was then trialed and the 12 mm insert fit most appropriately. Attention drawn the patella. The patella is cleaned of all soft tissues. Patella thickness measured 19 mm in thickness was cut down to 13. Was sized to a size 28 patella. The lug holes were drilled for the 28 patella. The lateral osteophytes removed. Patella button was placed. Knee was taken through range of motion patella tracked nicely with no thumbs test. Attention drawn to placing the permanent components. Nupathe all trial components were removed. Bone plug was placed in the distal femur limit blood loss. Double batch Palacos G cement was mixed. Biomet Vanguard size 62.5 left posterior stabilized femoral component, a size 63 tibial tray, 12 mm posterior stabilized polyethylene insert, and a 28 x 8 all Paller patella then cemented in place. Knee was brought out in full extension till cement hardened. Final cement check was then performed. The pericapsular tissues were injected with total 100 cc of combination of 20 of Exparel, 30 cc normal saline, 50 cc of quarter percent Marcaine with epinephrine. Patient did receive 1 g tranexamic acid. The tourniquet was then let down for final tourni quet time of 51 minutes. Hemostasis assured use electrocautery. Extensor mechanism then closed with combination 1 PDS suture #1 Vicryl suture in a adhwba-cs-fxlzi fashion to the extensor mechanism checked found to be intact with subcutaneous tissue then closed with 2 Dexon suture in a buried interrupted fashion skin was closed skin rigo. Leg was then cleaned and dried and sterile dressed with Xeroform, 4 fours, sterile cast padding, Narendra bandage were applied. Patient then transferred to the recovery room in stable condition. Patient tolerated procedure well and there were no complications. Rk Helms, my physician assistant director of admissions, was present for the entire procedure. His assistance was essential and required for appropriate patient positioning, prepping and draping, surgical exposure, performing the technical details of the operation, placement the implants, closure of the wound, and placement of the sterile bandage. I attest to the content of the Intraoperative Record and any orders documented therein. Any exceptions are noted below.
--- NOTE | 2022-11-20 11:11 | XRay Report ---
TWO VIEWS LEFT KNEE CLINICAL HISTORY: Postoperative examination. FINDINGS: AP and crosstable lateral portable views of the left knee are obtained. A left knee arthrop lasty is in near anatomic alignment. There has been undersurface remodeling of the patella. No acute fracture is seen. There are expected postoperative changes around the knee including skin clips, soft tissue edema, and subcutaneous gas. IMPRESSION: Expected postoperative changes status post left knee arthroplasty. No acute fracture is s een. ACT 112: Negative or not required by law. Electronically signed by: Terry Adler M.D. 11/20/2022 11:10 AM
[2022-11-20] MEDS ORDERED: ALUMINUM/MAGNESIUM SUSP 30 ML UDC PO PRN (11:42)
[2022-11-20] MEDS ORDERED: bisacodyL 10 MG SUPP PR PRN (11:42)
[2022-11-20] MEDS ORDERED: METOCLOPRAMIDE HCL INJ 5 MG/ML 2 ML VIAL IV PRN (11:42)
[2022-11-20] MEDS ORDERED: MAGNESIUM HYDROXIDE SUSP 30 ML UDC PO PRN (11:42)
[2022-11-20] MEDS ORDERED: NALOXONE HCL 0.4 MG/1 ML VIAL/CARP IV PRN (11:42)
[2022-11-20] MEDS: SODIUM CHLORIDE 0.9% 1000ML 1,000 ML IV SCH ×2 (12:09→21:58)
[2022-11-20] MEDS ORDERED: diphenhydrAMINE 50 MG/ML VIAL ONE (13:06)
[2022-11-20] MEDS ORDERED: METOCLOPRAMIDE HCL INJ 5 MG/ML 2 ML VIAL ONE (13:07)
[2022-11-20] MEDS: KETOROLAC TROMETHAMINE 15 MG/ML VIAL IV SCH ×3 (13:13→23:43)
[2022-11-20] MEDS: ACETAMINOPHEN 500 MG TAB PO SCH ×2 (13:14→22:00)
--- NOTE | 2022-11-20 13:46 | Anesthesiology Progress Note ---
Date of Service November 20, 2022 Anesthesia Post Procedure Vital Signs Vital Signs: Temp Pulse Pulse Pulse Resp BP BP 11/20/22 12:45 97.5 F L 68 16 117/79 11/20/22 12:11 98.4 F 72 18 123/77 11/20/22 11:44 97.5 F L 78 16 122/78 11/20/22 11:00 82 22 135/57 L 11/20/22 11:30 97.5 F L 77 12 115/70 11/20/22 11:20 79 14 116/58 L 11/20/22 11:10 80 14 113/68 11/20/22 10:50 83 14 118/69 11/20/22 10:42 96.8 F L 90 16 115/67 11/20/22 07:07 97.5 F L 64 18 124/66 Pulse Ox O2 Del Method O2 Flow Rate 11/20/22 12:45 98 Room Air 11/20/22 12:11 95 Room Air 11/20/22 11:44 97 Room Air 11/20/22 11:00 100 Oxymask 4 11/20/22 11:30 95 Nasal Cannula 2 11/20/22 11:20 98 Nasal Cannula 2 11/20/22 11:10 97 Room Air 11/20/22 10:50 100 Oxymask 6 11/20/22 10:42 99 Oxymask 10 11/20/22 07:07 97 Room Air Transfer of Care Handoff Completed per policy Notes Mental Status: alert / awake / arousable and participated in evaluation Patient Amnestic to Procedure: Yes Nausea / Vomiting: adequately controlled Pain: adequately controlled Airway Patency, RR, SpO2: stable & adequate BP & HR: stable & adequate Hydration State: stable & adequate Neuraxial Anesthesia: was administered and sensory block is resolving Anesthetic Complications: no major complications apparent and Pt Satisfied with anesthetic care
[2022-11-20] MEDS: HYDROmorphone INJ 0.5 MG/0.5 ML SYR IV PRN ×2 (13:57→23:55)
[2022-11-20] MEDS: ASCORBIC ACID 500 MG TAB PO SCH (16:12)
[2022-11-20] MEDS ORDERED: TRANEXAMIC ACID / 0.7% NACL 1,000 MG/100 ML BAG IV SCH (16:45)
[2022-11-20] MEDS: ceFAZolin 1000MG 1,000 MG/7.5 ML SYR IV SCH ×2 (18:03→23:43)
[2022-11-20] MEDS: FAMOTIDINE 10 MG TABLET PO SCH (18:07)
[2022-11-20] MEDS ORDERED: NON-FORMULARY MEDICATION (Amino Acids [Amino Acid] Capsule) PO SCH (21:00)
[2022-11-20] MEDS ORDERED: SENNA 8.6 MG TAB PO SCH (21:00)
[2022-11-20] MEDS: HYDROmorphone HCL 2 MG TAB PO PRN (21:57)
[2022-11-20] MEDS: SENNA 8.6 MG TAB PO SCH (22:01)
[2022-11-20] MEDS: ROSUVASTATIN CALCIUM 5 MG TAB PO SCH (22:01)
[2022-11-20] MEDS: ASPIRIN 81 MG ECTAB PO SCH (22:02)
[2022-11-20] MEDS: DOCUSATE SODIUM 100 MG CAP PO SCH (22:03)
[2022-11-21] MEDS: KETOROLAC TROMETHAMINE 15 MG/ML VIAL IV SCH ×3 (05:55→17:19)
[2022-11-21] MEDS: HYDROmorphone HCL 2 MG TAB PO PRN (07:16)
[2022-11-21 07:55] LABS: Hematocrit (blood only) 32.3 % (37.0-47.0); Hemoglobin 10.5 g/dl (12.0-16.0); Mean Corpuscular Hemoglobin 31.1 pg (25.0-34.0); Mean Corpuscular Hgb Conc 32.5 g/dL (32.0-36.0); Mean Corpuscular Volume 95.6 fL (80.0-100.0); Mean Platelet Volume 10.1 fL (9.4-12.4); Platelet Count 208 K/uL (130-400); RDW Coefficient of Variation 12.5 % (11.5-14.5); RDW Standard Deviation 43.7 fL (36.4-46.3); Red Blood Count 3.38 M/uL (4.20-5.40); White Blood Count 11.21 K/ul (4.8-10.8)
[2022-11-21] MEDS ORDERED: dexAMETHasone 10 MG in SYRINGE 0 ML IV SCH (08:00)
[2022-11-21 08:09] LABS: BUN Creatinine Ratio 32.7 (10-20); Calcium 8.4 mg/dl (8.6-10.3); Creatinine Clr Calc Pharmacy 84.8 ml/min; Est GFR (African American) 111.7 ml/min; Est GFR (Non-African American) 96.4 ml/min; Potassium 3.9 mmol/L (3.5-5.1)
[2022-11-21] MEDS: ASPIRIN 81 MG ECTAB PO SCH ×2 (08:59→20:58)
[2022-11-21] MEDS: DOCUSATE SODIUM 100 MG CAP PO SCH ×2 (08:59→20:57)
[2022-11-21] MEDS ORDERED: NON-FORMULARY MEDICATION (Multivitamin Tablet) PO SCH (09:00)
[2022-11-21] MEDS: ACETAMINOPHEN 500 MG TAB PO SCH ×3 (09:00→20:59)
[2022-11-21] MEDS: MULTIVITAMIN TAB PO SCH (09:01)
[2022-11-21] MEDS: CHOLECALCIFEROL 1,000 UNITS 25 MCG TAB PO SCH (09:02)
[2022-11-21] MEDS: ASCORBIC ACID 500 MG TAB PO SCH ×2 (09:02→17:18)
[2022-11-21] MEDS: FAMOTIDINE 10 MG TABLET PO SCH ×2 (09:02→20:58)
--- NOTE | 2022-11-21 13:04 | Progress Notes ---
DATE OF SERVICE: 11/21/2022. SUBJECTIVE: A 67-year-old white female postoperative day 1 from a left knee replacement. She is doi ng relatively well. There have been a bit more pain this morning. She has noticed that her foot is not working quite appropriately. No chest pain or shortness of breath. Not feeling dizzy or lighthe aded. Bandage does not seem too tight. PHYSICAL EXAMINATION: VITAL SIGNS: Temperature 36.5. Vital signs are stable. GENERAL: Shows a pleasant middle-aged female. She is sitting up in bed, eating lunch and looks comf ortable. LUNGS: Clear to auscultation. HEART: Regular rate and rhythm. ABDOMEN: Soft, nontender, nondistended. EXTREMITIES: Grossly neurovascularly intact except as follows. Examination of the left leg reveals the leg to be well aligned. Dressing is clean, dry and intact. No major swelling. Compartments are soft. She has got good plantar flexion. She cannot dorsiflex h er foot at all. She does have some numbness in the top of her foot as well. She has got brisk refil l. LABORATORY DATA: Hemoglobin 10.5, hematocrit 32.3. Electrolytes are stable. X-RAYS: X-rays of the left knee from recovery room are reviewed. It shows a cemented posterior ____ _ total knee arthroplasty. Components looked to be in excellent position. No signs of problems. ASSESSMENT: A 67-year-old white female postoperative day 1 from a left knee replacement with a peron eal nerve palsy of unclear etiology. It certainly could be still from the block or potentially a str ess injury during surgery. She does not have a major deformity. She does not have excessive swellin g and the bandage is not tight. Her knee is well aligned. At this time, we are going to have to obs erve and hopefully this will return. PLAN: 1. DVT prophylaxis includes thigh-high TEDs, SCDs, and aspirin twice a day. 2. PT/OT. She can fully weightbear as tolerated. 3. Pain control, doing okay with current pain regimen. 4. Peroneal nerve palsy. Her dressing is not too tight. Leg is well aligned. There is not a lot o f swelling. She is vascularly intact. I do not think there is anything we can do at this point othe r than just watch and wait to see how the nerve comes back. If it does not, we may need to get her a n AFO for a period of time. 5. Disposition. We are going to keep her overnight and observe her overnight just to check her foot function. She eventually can be discharged to a family member's house around locally for the first couple of weeks. She will have home health as well. Job ID: [id number]
[2022-11-21] MEDS: ROSUVASTATIN CALCIUM 5 MG TAB PO SCH (20:57)
[2022-11-21] MEDS: SENNA 8.6 MG TAB PO SCH (20:58)
[2022-11-22] MEDS: KETOROLAC TROMETHAMINE 15 MG/ML VIAL IV SCH ×2 (01:20→06:54)
--- NOTE | 2022-11-22 07:24 | Progress Notes ---
DATE OF SERVICE: 11/22/2022. SUBJECTIVE: A 67-year-old white female postoperative day 2 from a left knee replacement. She is doi ng well. Pain is improved. Her peroneal nerve function has returned. OBJECTIVE: VITAL SIGNS: Temperature 36.8. Vital signs stable. GENERAL: Shows a pleasant middle-aged female. Lying on bed, looks quite comfortable this morning. EXTREMITIES: Examination of the left leg reveals the dressing to be clean, dry and intact. Leg is w ell aligned. She can dorsiflex and plantarflex her foot appropriately. She is neurologically intact . ASSESSMENT: A 67-year-old white female postoperative day 2 from left knee replacement, doing well. Pain is controlled. Her nerve function has returned. PLAN: 1. DVT prophylaxis includes thigh-high TEDs, SCDs, and aspirin twice a day. 2. PT/OT, weightbear as tolerated. Left total knee protocol. 3. Pain control, doing okay with current pain regimen. 4. Disposition: Plan to discharge to home. She is staying with some family locally. She should be set up with some home health. Job ID: [id number]
[2022-11-22] MEDS: CHOLECALCIFEROL 1,000 UNITS 25 MCG TAB PO SCH (07:54)
[2022-11-22] MEDS: ASCORBIC ACID 500 MG TAB PO SCH (07:55)
[2022-11-22] MEDS: MULTIVITAMIN TAB PO SCH (07:55)
[2022-11-22] MEDS: FAMOTIDINE 10 MG TABLET PO SCH (07:56)
[2022-11-22] MEDS: DOCUSATE SODIUM 100 MG CAP PO SCH (07:56)
[2022-11-22] MEDS: ACETAMINOPHEN 500 MG TAB PO SCH (07:56)
[2022-11-22] MEDS: ASPIRIN 81 MG ECTAB PO SCH (07:56)
== END 2022-11-22 11:04 | disposition home health service (06) | DRG 470 ==
LOC: ASU 06:33 → 3E 10:40